=== PATIENT | female | born 1990 | race Caucasian/White ===

== ENCOUNTER 2023-12-03 02:46 | Inpatient (IN) | payer OTHER ==
[2023-12-03 03:23] VITALS: BMI 30.4
[2023-12-03 03:53] LABS: Fetal Membranes Rupture RUPTURE DETECTED (No Rupture)
[2023-12-03] MEDS ORDERED: fentaNYL 50 mcg/mL 1 mL Vial SLOW IVP PRN (04:41)
[2023-12-03] MEDS ORDERED: Ondansetron PF 4 MG/2 ML Vial IVP PRN (04:45)
[2023-12-03] MEDS ORDERED: Oxytocin 30 units/NS 500 ML 500 ML IVPB SCH (04:45)
[2023-12-03] MEDS ORDERED: Lactated Ringer's 1,000 ML IV SCH (04:45)
[2023-12-03] MEDS ORDERED: Lidocaine 1% (PF) 30 ML VIAL SC PRN (04:45)
[2023-12-03] MEDS ORDERED: Butorphanol Tartrate 1 MG/ML VIAL SLOW IVP PRN (04:45)
[2023-12-03] MEDS ORDERED: Acetaminophen 500 MG TAB PO PRN (04:45)
[2023-12-03] MEDS ORDERED: Ibuprofen 800 MG TAB PO PRN (04:45)
[2023-12-03] MEDS ORDERED: Promethazine HCl 25 MG/ML VIAL IM PRN (04:45)
[2023-12-03] MEDS ORDERED: hydrALAZINE 20 MG/ML VIAL SLOW IVP PRN ×2 (04:45→16:20)
[2023-12-03] MEDS: Penicillin G Potassium 5 MILL.UNITS in Sodium Chloride 0.9% 100 ML IVPB SCH (04:58)
[2023-12-03] MEDS: Lactated Ringer's 1,000 ML IV SCH (04:58)
[2023-12-03 05:25] LABS: Hematocrit 39.3 % (34.9-44.5); Hemoglobin 13.6 g/dL (12.0-15.5); Mean Corpuscular HGB CONC 34.6 g/dL (32.0-36.0); Mean Corpuscular Hemoglobin 32.9 pg (27.0-33.0); Mean Corpuscular Volume 94.9 fL (81.6-98.3); Mean Platelet Volume 10.9 fL (7.4-10.4); Platelet Count 220 10x3/uL (150-450); RBC Distribution Width 13.2 % (11.5-14.5); Red Blood Cell (RBC) Count 4.14 10x6/uL (3.90-5.03); White Blood Cell (WBC) Count 12.2 10x3/uL (3.5-10.5)
[2023-12-03 05:35] LABS: ALT (SGPT) 15 U/L (8-55); AST (SGOT) 20 U/L (5-34); Albumin 3.5 g/dL (3.5-5.0); Alkaline Phosphatase 123 U/L (40-110); Anion Gap 16 mmol/L (10-20); BUN (Urea Nitrogen) 7 mg/dL (7.0-18.7); Bilirubin, Total 0.5 mg/dL (0.2-1.2); Calc. Creatinine Clearance 155 mL/min (70-130); Calcium 9.7 mg/dL (7.8-10.44); Carbon Dioxide 22 mmol/L (22-29); Chloride 103 mmol/L (98-107); Estimated GFR 109; Globulin 3.9 g/dL (2.4-3.5); Glucose 82 mg/dL (70-105); Potassium 3.8 mmol/L (3.5-5.1); Protein, Total 7.4 g/dL (6.0-8.3); Sodium 137 mmol/L (136-145)
[2023-12-03 05:49] LABS: Syphilis Antibody Nonreactive (Nonreactive); Syphilis Antibody Index 0.08 S/CO (<1.00 Non-Reactive)
[2023-12-03 05:51] LABS: HBsAg Index 0.19 S/CO (0-0.99); Hep B Surf Ag - L&D Non-Reactive S/CO (NonReactive)
[2023-12-03] MEDS: Penicillin G 2.5 MILL.units 2.5 MILL.UNITS in Premix 1 BAG IVPB SCH (09:14)
[2023-12-03] MEDS: Oxytocin 30 units/NS 500 ML 500 ML IV SCH (09:18)
[2023-12-03] MEDS: hydrALAZINE 20 MG/ML VIAL SLOW IVP PRN (12:38)
[2023-12-03] MEDS: NIFEdipine XL 30 MG ER.TAB PO SCH ×2 (12:47→12:50)
[2023-12-03] MEDS ORDERED: Preparation H Ointment 28 GM TUBE PR PRN (16:20)
[2023-12-03] MEDS ORDERED: Bisacodyl 10 MG SUPP PR PRN (16:20)
[2023-12-03] MEDS ORDERED: diphenhydrAMINE 25 MG CAP PO PRN (16:20)
[2023-12-03] MEDS ORDERED: traMADol HCl 50 MG TAB PO PRN (16:20)
[2023-12-03] MEDS ORDERED: Milk Of Magnesia 30 ML UDCUP PO PRN (16:20)
[2023-12-03] MEDS ORDERED: Lanolin Ointment 7 GM TUBE TOP PRN (16:20)
[2023-12-03] MEDS: Boostrix 0.5 ML (Tdap) VIAL (>/=7 yrs of age) IM ONE (17:07)
[2023-12-03] MEDS: Ferrous Sulfate 325 MG TAB PO SCH (17:07)
[2023-12-03] MEDS ORDERED: Ibuprofen 800 MG TAB PO SCH ×2 (18:00)
[2023-12-03] MEDS: Docusate 100 MG CAP PO SCH (21:19)
[2023-12-03] MEDS: Ibuprofen 800 MG TAB PO SCH (21:19)
[2023-12-03] MEDS: Benzocaine-Menthol 82.5 ML CAN TOP PRN (21:20)
[2023-12-04] MEDS: Prenatal Vitamin 1 TAB PO SCH (08:05)
[2023-12-05 16:06] VITALS: BP 135/88; TEMP 98.6
== END 2023-12-05 17:50 | disposition home or self-care (01) | DRG 805 ==
LOC: CSHLD/OP 02:46 → CSHLD 10:37 → CSHPP 16:30
PROVIDERS: ADMIT Obstetrics & Gynecology; ATTEND Obstetrics & Gynecology
PROC: 10E0XZZ Delivery of Products of Conception, External Approach (ICD-10-PCS; principal; 2023-12-03)
PROC: 0HQ9XZZ Repair Perineum Skin, External Approach (ICD-10-PCS; 2023-12-03)
DX: O42.913 Preterm premature rupture of membranes, unspecified as to length of time between rupture and onset of labor, third trimester (principal); O60.14X0 Preterm labor third trimester with preterm delivery third trimester, not applicable or unspecified; Z37.0 Single live birth; O13.4 Gestational [pregnancy-induced] hypertension without significant proteinuria, complicating childbirth; Z3A.36 36 weeks gestation of pregnancy; Z88.2 Allergy status to sulfonamides; Z79.899 Other long term (current) drug therapy; Z79.82 Long term (current) use of aspirin; O99.824 Streptococcus B carrier state complicating childbirth; O70.0 First degree perineal laceration during delivery; O14.04 Mild to moderate pre-eclampsia, complicating childbirth
CPT/HCPCS: 80053; 84112; 85027; 86780; 86850; 86900; 86901; 87340; 99285; J0360; J0595; J2001; J2540; J2590; J3490